=== PATIENT | female | born 1995 | race Caucasian/White ===

== ENCOUNTER 2019-08-21 20:02 | Inpatient (IN) | payer OTHER ==
[~2019-08-21] VITALS: Ht 165.1 cm; Wt 104.3 kg
[2019-08-21 20:26] VITALS: BP 109/55
[2019-08-21 20:54] LABS: INFLUENZA A ANTIGEN Negative (Negative); INFLUENZA B ANTIGEN Negative (Negative)
[2019-08-21 21:06] LABS: HEMOGLOBIN 12.7 gm/dL (12.0-15.0); MCH 27.6 pg (26.0-34.0); MCHC 34.2 g/dL (28.0-37.0); MCV 80.8 fL (80.0-100.0); MPV 7.8 fl. (7.2-11.1); NUCLEATED RBCS 0 /100WBC; PLATELET COUNT* 212 thou/uL (150-400); RBC 4.58 mil/uL (4.20-5.00); RDW-CV 13.3 % (10.5-14.5); WBC 6.6 thou/uL (4.0-11.0)
[2019-08-21 21:15] LABS: CALCIUM 8.2 mg/dL (8.5-10.1); CREATININE 0.9 mg/dL (0.6-1.3); POTASSIUM 3.6 mmol/L (3.5-5.1)
[2019-08-21 21:21] LABS: ALBUMIN 3.1 g/dL (3.4-5.0); TOTAL BILIRUBIN 0.2 mg/dL (<0.1-1.0)
[2019-08-21 21:48] LABS: ABSOLUTE EOSINOPHILS 0.1 thou/uL (0.0-0.7); ABSOLUTE LYMPHOCYTES 0.3 thou/uL (0.8-5.3); ABSOLUTE MONOCYTES 0.1 thou/uL (0.0-1.2); ABSOLUTE NEUTROPHILS 6.2 thou/uL (1.6-8.1); PLATELET ESTIMATE ADEQUATE
[2019-08-21 22:33] LABS: URINE BILIRUBIN NEGATIVE (Negative); URINE BLOOD NEGATIVE (Negative); URINE CLARITY CLEAR; URINE COLOR YELLOW; URINE GLUCOSE-RANDOM NEGATIVE (Negative); URINE KETONES TRACE (Negative); URINE LEUKOCYTES-REFLEX NEGATIVE (Negative); URINE NITRITE-REFLEX NEGATIVE (Negative); URINE PROTEIN TRACE (Negative); URINE UROBILINOGEN 0.2 E.U./dl (0.2-1.0)
[2019-08-21 22:41] LABS: AMP/METHAMP Negative (Negative); BARBITURATES Negative (Negative); BENZODIAZEPINES Negative (Negative); COCAINE Negative (Negative); METHADONE Negative (Negative); OPIATES Negative (Negative); PCP Negative (Negative); THC POSITIVE (Negative)
[2019-08-21 22:46] LABS: BE -4.2 mmol/L (-2 to +3); PCO2 29.6 mmHg (35.0-45.0); pH 7.425 (7.340-7.450)
[2019-08-21 22:47] LABS: PO2 58.6 mmHg (75.0-100.0)
[2019-08-22 02:32] VITALS: BP 118/62
[2019-08-22 02:36] VITALS: BP 118/69
[2019-08-22 02:41] LABS: HEMATOCRIT 34.4 % (37.0-47.0); HEMOGLOBIN 11.7 gm/dL (12.0-15.0); MCH 27.8 pg (26.0-34.0); MCHC 34.1 g/dL (28.0-37.0); MCV 81.4 fL (80.0-100.0); MPV 8.4 fl. (7.2-11.1); RBC 4.23 mil/uL (4.20-5.00); RDW-CV 13.4 % (10.5-14.5); WBC 5.9 thou/uL (4.0-11.0)
[2019-08-22 02:51] LABS: ALBUMIN 2.8 g/dL (3.4-5.0); CALCIUM 7.4 mg/dL (8.5-10.1); CREATININE 0.7 mg/dL (0.6-1.3); POTASSIUM 3.4 mmol/L (3.5-5.1); TOTAL BILIRUBIN 0.2 mg/dL (<0.1-1.0); TOTAL PROTEIN 6.5 g/dL (6.4-8.2)
--- NOTE | 2019-08-22 03:24 | NUR ---
ASSUMED CARE OF PT AT 0225. PT IS ALERT AND ORIENTED. VSS. PERRLA. PT REPORTS BODY ACHES. PT GETTING TYLENOL. PT IS IN SINUS RYTHM ON THE TELEMETRY. PT IS RESTING COMFORTABLY IN BED. RESPIRATIONS ARE EVEN AND NONLABORED. WILL CONTINUE TO MONITOR PT.
[2019-08-22 08:47] VITALS: BP 115/63
[2019-08-22 16:00] VITALS: BP 123/75
--- NOTE | 2019-08-22 17:10 | NUR ---
PT REMIANED ALERT AND ORIENTED. PT RESTING IN BED. PT C/O MUSCLE ACHES, REQUESTS TYLENOL. FALL RISK PRECAUTIONS IN PLACE. HOURLY ROUNDING COMPLETED. WILL CONTINUE TO MONITOR.
[2019-08-22 20:25] VITALS: BP 115/75
[2019-08-23 07:10] VITALS: BP 160/97
--- NOTE | 2019-08-23 07:29 | NUR ---
PATIENT SLEPT WELL THROUGHOUT THE NIGHT. VSS ON 4L 02 VIA NASAL CANNULA. MEDICATIONS GIVEN ORDERED AND CHARTED. PATIENT INSTRUCTTED TO USE CALL LIGHT WHEN NEEDING ASSISTANCE. HOURLY ROUNDS MADE. WILL CONTINUE WITH PLAN OF CARE AND NURSING TO MONITOR.
[2019-08-23] MEDS ORDERED: PREDNISONE 20 M20 M1 PO (09:21)
[2019-08-23] MEDS ORDERED: CEFDINIR300 MG PO (09:21)
[2019-08-23 10:22] VITALS: BP 160/97
[2019-08-23 11:10] VITALS: BP 160/97
--- NOTE | 2019-08-23 11:10 | NUR ---
PT GIVEN DSICHARGE INFORMATION, CARE NOTES, AND PRESCRIPTIONS. IV REMOVED. PT PASSED ACTIVITY AND RESTING 02 SATS. PT GIVEN INFORMATION REGARDING FINDING A PCP. PT LEFT VIA WHEELCHAIR WITH NURSING STAFF TO HOME. FALL RISK PRECAUTIONS IN PLACE. HOURLY ROUNDING COMPLETED.
--- NOTE | 2019-08-26 13:55 | EKG ---
[place] [address] ELECTROCARDIOGRAM REPORT Name: YO MARTINEZAILA NIMCO Room: [address] [place] .R.#: [id number] Admission: 08/21/19 Attend Phys: Dannie Barragan Discharge: 08/23/19 Date of : 89 Date of Service: 08/21/19 2239 Report #: [id number] THIS REPORT FOR: cc: [place] - Amy family physician/PCP FAM - No family physician/PCP Tony Perez MD [facility] THIS REPORT FOR: //name// [facility] ED Test Date: 2019-08-21 Test Time: 22:39:18 Pat Name: SHERRY MARTINEZ Department: Room: [facility] Gender: F Intake Rn: [place] : 1995 Requested By: Adali Hennessy Order Number: [id number] : Tony Perez Measurements Intervals [place] Rate: 138 P: 54 HI: 140 QRS: 41 QRSD: 83 T: -74 QT: 332 QTc: 503 Interpretive Statements Sinus tachycardia Borderline repolarization abnormality Prolonged QT interval No previous ECG available for comparison Electronically Signed On 08-22-2019 13:32:10 [employer] HISTORIAN by Tony Perez [email or web address] <ELECTRONICALLY SIGNED> By: Tony Perez MD, [facility] 08/22/19 1332 Tony Perez MD, [facility] /EPI
== END 2019-08-23 12:21 | disposition home or self-care (01) | DRG 177 ==
LOC: M.ERS 20:02 → M.TBA-ER 22:31 → M.2W 08-22 02:30 → M.ORTHSURG 08-22 09:28
PROVIDERS: Emergency Medicine; Nurse Practitioner Family; ADMIT Family Medicine
DX: J15.6 Pneumonia due to other Gram-negative bacteria (principal); J96.01 Acute respiratory failure with hypoxia; E44.1 Mild protein-calorie malnutrition; F17.200 Nicotine dependence, unspecified, uncomplicated; Z68.38 Body mass index [BMI] 38.0-38.9, adult